=== PATIENT | female | born 1940 | race Hispanic/Latino ===

== ENCOUNTER 2017-04-02 12:51 | Emergency (ER) | payer MEDICARE ==
[~2017-04-02 12:51] MED LIST: Iopamidol 370 76% 100 ML VIAL ONE
[2017-04-02] MEDS ORDERED: traMADol HCl 50 MG TAB ONE (13:43)
[2017-04-02] MEDS ORDERED: Ketorolac Tromethamine 30 MG/ML VIAL ONE (13:43)
[2017-04-02 13:46] LABS: #Basophils 0.1 thou/uL (0.0-0.2); #Eosinphils 0.1 thou/uL (0.0-0.7); #Lymphocytes 1.9 thou/uL (1.20-3.40); #Monocytes 0.8 thou/uL (0.11-0.59); #Neutrophils 4.8 thou/uL (1.40-6.50); %Basophils 0.8 % (0.0-1.0); %Eosinophils 1.4 % (0.0-10.0); %Lymphocytes 24.9 % (21.0-51.0); %Neutrophils 62.9 % (42.0-75.0); Hemoglobin 11.7 g/dL (12.0-16.0); Mean Corpuscular HGB CONC 33.4 g/dL (32.0-36.0); Mean Corpuscular Hemoglobin 30.7 pg (27.0-31.0); Mean Corpuscular Volume 91.9 fl (81.0-99.0); Platelet Count 255 thou/uL (130-400); RBC Distribution Width 12.1 % (11.5-14.5); Red Blood Cell (RBC) Count 3.82 mill/uL (4.20-5.40); White Blood Cell (WBC) Count 7.6 thou/uL (4.8-10.8)
[2017-04-02 14:09] LABS: Anion Gap 15 mmol/L (10-20); BUN (Urea Nitrogen) 19 mg/dL (9.8-20.1); Calc. Creatinine Clearance 0 mL/min (70-130); Calcium 9.1 mg/dL (7.8-10.44); Carbon Dioxide 26 mmol/L (23-31); Chloride 104 mmol/L (98-107); Estimated GFR-MDRD 67; Glucose 84 mg/dL (83-110); Potassium 3.9 mmol/L (3.5-5.1); Sodium 141 mmol/L (136-145)
--- NOTE | 2017-04-02 16:02 | CT ---
CT PELVIS WITH AND WITHOUT IV CONTRAST: Date: 04/02/17 HISTORY: Right groin pain and hip pain. History of non-Hodgkin's lymphoma. COMPARISON: None available. FINDINGS: There is a small, fat-containing umbilical hernia. Vascular calcifications are present in the most distal visualized infrarenal abdominal aorta and invo lving the iliac arteries. Uterus is not visualized, probably related to prior hysterectomy. Urinary bladder is incompletely dis tended, but has a normal CT appearance. No dilated loops of small bowel are seen. Within the central mesentery, there is mild haziness with mild prominence of lymph nodes within the c entral mesentery. Lymph nodes are not particularly enlarged, but given patient's history, lymphoma ca nnot be entirely excluded. The largest lymph nodes measures 1.3 cm in short axis dimension. No free fluid or fluid collection is seen in the pelvis. There is sclerosis involving the sacrum bilaterally with suggestion of minimal cortical step-off sarah g the anterolateral aspect of the sacral ala bilaterally. Findings are most likely attributable to he aling bilateral sacral insufficiency fractures. Fractures are seen involving the inferior pubic rami bilaterally. No suspicious lytic or osseous lesions are identified. There are degenerative changes s een in the spine with wedge-shaped fractures involving the L3 and L4 vertebral bodies. Prominent dege nerative changes are seen at these levels as well. There are multiple surgical clips seen in the left aspect of the pelvis. No free fluid or fluid colle ction is seen in the pelvis. IMPRESSION: 1. Healing bilateral sacral insufficiency fractures. 2. Prominent wedge-shaped compression fractures of the L3 and L4 vertebral bodies. The degree of hei ght loss is greater than 75% involving the anterior aspects of these fractures. 3. Fractures involving the inferior pubic rami bilaterally. The exact age of these fractures is diff icult to determine, but may be more remote in origin, especially on the left, as there is associated mild deformity of the left pubic bone. 4. No fracture or dislocation is seen involving either hip. 5. Small, fat-containing umbilical hernia. 6. Hysterectomy. 7. Postsurgical changes left hemipelvis. 8. Haziness in the central mesentery with associated mildly prominent lymph nodes. While this is ove rall nonspecific and can be seen with mesenteric panniculitis, patient does report history of non-Hod gkin's lymphoma, and findings could potentially be attributable to lymphoma. POS: [facility]
== END 2017-04-02 15:25 | disposition home or self-care (01) ==
LOC: MADERS 12:51
DX: S76.011A Strain of muscle, fascia and tendon of right hip, initial encounter (principal); X58.XXXA Exposure to other specified factors, initial encounter
CPT/HCPCS: 72194; 80048; 85025; 96374; J1885

== ENCOUNTER 2017-05-26 21:29 | Emergency (ER) | payer MEDICARE ==
[2017-05-26] MEDS ORDERED: Phenergan/Codeine 10-6.25mg/5ml UDCUP ONE ×2 (22:00→22:03)
[2017-05-26] MEDS ORDERED: predniSONE 20 MG TAB ONE (22:00)
--- NOTE | 2017-05-26 22:16 | RAD ---
TWO VIEW CHEST: History: Cough. FINDINGS: Lungs are clear. No infiltrates seen. Heart and mediastinum are unremarkable. IMPRESSION: No evidence of acute process. POS: [facility]
[2017-05-26] MEDS ORDERED: Azithromycin 250 MG TAB ONE (22:41)
== END 2017-05-26 22:50 | disposition home or self-care (01) ==
LOC: MADERS 21:29
DX: J20.9 Acute bronchitis, unspecified (principal); E03.9 Hypothyroidism, unspecified; Z79.899 Other long term (current) drug therapy
CPT/HCPCS: 71046; J7506; J7620

== ENCOUNTER 2018-07-24 09:01 | Emergency (ER) | payer MEDICARE ==
[2018-07-24] MEDS ORDERED: Iopamidol 370 76% 100 ML VIAL ONE (09:04)
[2018-07-24 10:02] LABS: #Basophils 0.1 thou/uL (0.0-0.2); #Lymphocytes 2.5 thou/uL (1.20-3.40); #Monocytes 0.7 thou/uL (0.11-0.59); #Neutrophils 6.5 thou/uL (1.40-6.50); %Basophils 0.5 % (0.0-1.0); %Eosinophils 0.3 % (0.0-10.0); %Lymphocytes 25.3 % (21.0-51.0); %Monocytes 6.9 % (0.0-10.0); Hemoglobin 12.4 g/dL (12.0-16.0); Mean Corpuscular HGB CONC 31.6 g/dL (32.0-36.0); Mean Corpuscular Hemoglobin 26.5 pg (27.0-31.0); Mean Platelet Volume 7.1 fL (7.4-10.4); Platelet Count 294 thou/uL (130-400); RBC Distribution Width 14.1 % (11.5-14.5); Red Blood Cell (RBC) Count 4.68 mill/uL (4.20-5.40); White Blood Cell (WBC) Count 9.8 thou/uL (4.8-10.8)
[2018-07-24 10:21] LABS: ALT (SGPT) 13 U/L (8-55); AST (SGOT) 21 U/L (5-34); Albumin 4.3 g/dL (3.4-4.8); Alkaline Phosphatase 91 U/L (40-150); Anion Gap 14 mmol/L (10-20); BUN (Urea Nitrogen) 16 mg/dL (9.8-20.1); Bilirubin, Total 0.3 mg/dL (0.2-1.2); Calc. Creatinine Clearance 0 mL/min (70-130); Calcium 9.3 mg/dL (7.8-10.44); Carbon Dioxide 24 mmol/L (23-31); Chloride 102 mmol/L (98-107); Estimated GFR-MDRD 51; Globulin 4.7 g/dL (2.4-3.5); Glucose 120 mg/dL (83-110); Lipase 9 U/L (8-78); Potassium 4.1 mmol/L (3.5-5.1); Sodium 136 mmol/L (136-145)
--- NOTE | 2018-07-24 10:21 | RAD ---
SINGLE VIEW CHEST: Date: 07/24/18 COMPARISON: None. HISTORY: Chest pain after injury. FINDINGS: Single view of the chest shows a normal sized cardiomediastinal silhouette. There is no evidence of c onsolidation, mass, or pleural effusion. The bones are unremarkable. IMPRESSION: No evidence of acute cardiopulmonary disease. POS: [facility]
--- NOTE | 2018-07-24 11:40 | CT ---
CT OF THE ABDOMEN AND PELVIS WITH IV CONTRAST: Date: 07/24/18 INDICATION: Periumbilical abdominal pain. COMPARISON: CT of the pelvis with and without contrast dated 04/02/17 and chest radiograph dated 05/26/17. FINDINGS: The lung bases are clear. There are tiny hypodensities within the right hepatic lobe, one measuring 8.0 mm on image 13 of serie s 2, segment 5, and an additional measuring 4.0 mm on image 16 of series 2. There is a small hiatal hernia. The pancreas and adrenal gland appear within normal limits. Spleen is normal appearing. Kidneys are m ildly atrophic. There is extensive adenopathy within the upper retroperitoneal region. One of the largest was seen wi thin the paraaortic region measuring 1.3 cm. There is a left posterior mediastinal lymph node adjacen t to the descending thoracic aorta on image 14 of series, measuring 1.2 cm. There is an enlarged chandler portal lymph node measuring 1.1 cm. There are enlarged lymph nodes within the transverse mesocolon, l argest measuring 1.6 cm. There is mass-like wall thickening involving a loop of transverse colon, best seen on image 26 of ser ies 2, with evidence of some suspected edema or soft tissue extension into the anterior serosal layer on image 30 of series 2. This is causing mild to moderate partial obstructive physiology of the hepa tic flexure in the ascending colon. There is some mild fluid distention in loops of small bowel. Ther e is some mild fluid seen within a fat-containing periumbilical hernia, which was present on the comp arison exam. The bladder is decompressed. Rectum and perirectal soft tissues are unremarkable appeari ng. No lymphadenopathy or free fluid is evident within the pelvis. There are numerous compression abn ormalities involving the thoracolumbar spine, specifically, T9, T12, L1, L2, L3, L4, and L5. There is diffuse osteopenia. IMPRESSION: 1. Findings suspicious for an applecore malignancy of the transverse colon with associated extralumi nal and extramural spread of tumor into the anterior serosal layer with malignant lymphadenopathy of the mesocolon, retroperitoneum, and periportal regions. There are small hypodensities within the live r that cannot be further characterized; however, metastatic disease to the liver is not excluded. The re is an enlarged lymph node within the posterior mediastinum adjacent to the aorta which is also andrea picious for malignant lymph node spread. GI consultation and consideration for colonoscopy is recomme nded. An alternative explanation for the findings include an area of short segment colitis that may b e ischemic or infectious in etiology. Inflammatory etiology is felt to be less likely. 2. Chronic compression abnormalities of the thoracolumbar spine with diffuse osteopenia. POS: [facility]
[2018-07-24] MEDS ORDERED: Ondansetron PF 4 MG/2 ML Vial ONE (12:07)
[2018-07-24] MEDS ORDERED: Morphine 4 MG/ML VIAL ONE (12:07)
== END 2018-07-24 12:24 | disposition short-term general hospital (02) ==
LOC: MADERS 09:01
DX: K56.600 Partial intestinal obstruction, unspecified as to cause (principal); K63.89 Other specified diseases of intestine; B34.9 Viral infection, unspecified; E03.9 Hypothyroidism, unspecified; Z79.899 Other long term (current) drug therapy
CPT/HCPCS: 36415; 71045; 74177; 80053; 83605; 83690; 83880; 84484; 85025; 87804; 93005; 96374; 96375; J2270; J2405; J7620; Q9967

== ENCOUNTER 2019-04-10 15:29 | Outpatient (CLI) | payer MEDICARE ==
--- NOTE | 2019-04-10 15:54 | RAD ---
EXAM: 2 views of the right hip HISTORY: Right hip pain COMPARISON: None FINDINGS: 2 views of the right hip shows no evidence of acute fracture or dislocation. No degenerativ e changes are seen. No soft tissue swelling is present. IMPRESSION: No evidence of acute osseous abnormality.
--- NOTE | 2019-04-10 15:54 | RAD ---
PELVIS 1 VIEW: HISTORY: Acute exacerbation of chronic low back pain. FINDINGS: Surgical clips overlie the left pelvis. Arthrosis and degenerative changes with some hip joint space loss as well as arthrosis changes of the SI joints bilaterally. Minimal bony demineralization. No acute fracture or dislocation. IMPRESSION: Bone demineralization with arthrosis and degenerative change. POS: [facility]
== END 2019-04-10 15:30 | disposition home or self-care (01) ==
LOC: MADRAD 15:29
PROVIDERS: ATTEND Family Medicine
DX: M54.5 Low back pain (principal); M47.898 Other spondylosis, sacral and sacrococcygeal region; M81.0 Age-related osteoporosis without current pathological fracture
CPT/HCPCS: 72170

== ENCOUNTER 2019-04-16 03:12 | Emergency (ER) | payer MEDICARE, OTHER ==
[2019-04-16] MEDS ORDERED: Benzonatate 100 MG CAP ONE (03:50)
[2019-04-16 04:08] LABS: Hemoglobin 9.1 g/dL (12.0-16.0); Mean Corpuscular HGB CONC 30.6 g/dL (32.0-36.0); Mean Platelet Volume 7.9 fL (7.4-10.4); Platelet Count 103 thou/uL (130-400); RBC Distribution Width 15.4 % (11.5-14.5); Red Blood Cell (RBC) Count 2.76 mill/uL (4.20-5.40); White Blood Cell (WBC) Count 4.3 thou/uL (4.8-10.8)
[2019-04-16 04:09] LABS: #Basophils 0.1 thou/uL (0.0-0.2); #Monocytes 0.1 thou/uL (0.11-0.59); %Basophils 1.5 % (0.0-1.0); %Eosinophils 0.5 % (0.0-10.0); %Lymphocytes 24.3 % (21.0-51.0); %Monocytes 3.4 % (0.0-10.0); %Neutrophils 70.3 % (42.0-75.0); MDiff Complete? YES
[2019-04-16 04:14] LABS: ALT (SGPT) 21 U/L (8-55); AST (SGOT) 35 U/L (5-34); Albumin 3.6 g/dL (3.4-4.8); Alkaline Phosphatase 93 U/L (40-110); Anion Gap 13 mmol/L (10-20); BUN (Urea Nitrogen) 18 mg/dL (9.8-20.1); Bilirubin, Total 0.5 mg/dL (0.2-1.2); Calc. Creatinine Clearance 0 mL/min (70-130); Calcium 8.1 mg/dL (7.8-10.44); Carbon Dioxide 26 mmol/L (23-31); Chloride 105 mmol/L (98-107); Estimated GFR-MDRD 69; Globulin 3.7 g/dL (2.4-3.5); Glucose 94 mg/dL (83-110); Potassium 3.1 mmol/L (3.5-5.1); Protein, Total 7.3 g/dL (6.0-8.3); Sodium 141 mmol/L (136-145)
[2019-04-16] MEDS ORDERED: methylPREDNISolone Sod Succ/PF 125 MG/2 ML VIAL ONE (04:33)
--- NOTE | 2019-04-16 08:11 | RAD ---
ONE VIEW CHEST: COMPARISON: 07/24/2018. HISTORY: Cough, shortness of breath. FINDINGS: Atherosclerosis of the aorta. Right-sided MediPort catheter terminates in the superior vena cava. N ormal cardiac silhouette. Diffuse interstitial opacities of the lung parenchyma, unchanged. Chronic interstitial process is suspected. There do appear to be superimposed reticulonodular opacities sug gesting infiltrate. Interval blunting of the left costophrenic angle suggesting pleural effusion. A djacent left lower lobe parenchymal changes cannot be excluded. IMPRESSION: 1. Possible edema or infiltrate superimposed upon chronic changes. 2. Small left-sided pleural effusion. POS: [facility]
== END 2019-04-16 04:58 | disposition home or self-care (01) ==
LOC: MADERS 03:12
DX: I50.9 Heart failure, unspecified (principal); J06.9 Acute upper respiratory infection, unspecified; E03.9 Hypothyroidism, unspecified
CPT/HCPCS: 71045; 80053; 83880; 84484; 85025; 93005; 96374; J2930; J7620

== ENCOUNTER 2019-05-05 15:08 | Outpatient (CLI) | payer MEDICARE, OTHER ==
--- NOTE | 2019-05-05 15:33 | RAD ---
EXAM: Chest 2 views: HISTORY: Bilateral rib pain. History of pleural effusion COMPARISON: 05/26/2017 FINDINGS: There is a normal-sized cardiomediastinal silhouette. A right subclavian Mediport is seen with its t ip in the superior vena cava. Increased interstitial markings are present. There are trace bilateral pleural effusions. The bones are unremarkable. IMPRESSION: Very small bilateral pleural effusions.
--- NOTE | 2019-05-05 15:40 | RAD ---
EXAM: Right rib series HISTORY: Rib pain COMPARISON: None FINDINGS: Multiple views of the right ribs shows no evidence of displaced rib fracture. No underlying pleural t hickening or pneumothorax are seen. A Mediport is seen with its tip in the superior vena cava. IMPRESSION: 1. No evidence of displaced rib fracture.
[2019-05-05 15:47] LABS: ALT (SGPT) 9 U/L (8-55); AST (SGOT) 19 U/L (5-34); Albumin 3.5 g/dL (3.4-4.8); Alkaline Phosphatase 88 U/L (40-110); Anion Gap 14 mmol/L (10-20); BUN (Urea Nitrogen) 17 mg/dL (9.8-20.1); Bilirubin, Total 0.3 mg/dL (0.2-1.2); Calc. Creatinine Clearance 0 mL/min (70-130); Calcium 8.6 mg/dL (7.8-10.44); Carbon Dioxide 31 mmol/L (23-31); Chloride 102 mmol/L (98-107); Estimated GFR-MDRD 56; Globulin 3.5 g/dL (2.4-3.5); Glucose 96 mg/dL (83-110); Potassium 3.6 mmol/L (3.5-5.1); Sodium 143 mmol/L (136-145)
--- NOTE | 2019-05-05 15:49 | RAD ---
EXAM: Left rib series HISTORY: Rib pain COMPARISON: None FINDINGS: Multiple views of the left ribs shows no evidence of displaced rib fracture. No underlying pleural th ickening or pneumothorax are seen. IMPRESSION: 1. No evidence of displaced rib fracture.
== END 2019-05-05 15:09 | disposition home or self-care (01) ==
LOC: MADRAD 15:08
PROVIDERS: ATTEND Family Medicine
DX: R79.9 Abnormal finding of blood chemistry, unspecified (principal); R07.81 Pleurodynia; J90 Pleural effusion, not elsewhere classified; Z87.09 Personal history of other diseases of the respiratory system
CPT/HCPCS: 36415; 71046; 80053; 83880

== ENCOUNTER 2019-12-25 07:15 | Emergency (ER) | payer MEDICARE, OTHER ==
[2019-12-25] MEDS ORDERED: Sodium Chloride 0.9% 1,000 ML ONE (08:12)
[2019-12-25] MEDS ORDERED: Ondansetron PF 4 MG/2 ML Vial ONE ×2 (08:12→11:57)
[2019-12-25 08:36] LABS: #Basophils 0.1 thou/uL (0.0-0.2); #Lymphocytes 1.2 thou/uL (1.20-3.40); #Neutrophils 8.2 thou/uL (1.40-6.50); %Basophils 0.9 % (0.0-1.0); %Eosinophils 0.4 % (0.0-10.0); %Lymphocytes 11.5 % (21.0-51.0); %Monocytes 9.3 % (0.0-10.0); %Neutrophils 77.9 % (42.0-75.0); Hemoglobin 11.7 g/dL (12.0-16.0); Mean Corpuscular HGB CONC 31.6 g/dL (32.0-36.0); Mean Corpuscular Hemoglobin 30.9 pg (27.0-31.0); Mean Corpuscular Volume 97.8 fL (78.0-98.0); Mean Platelet Volume 7.5 fL (7.4-10.4); Platelet Count 251 thou/uL (130-400); RBC Distribution Width 14.4 % (11.5-14.5); White Blood Cell (WBC) Count 10.5 thou/uL (4.8-10.8)
[2019-12-25 08:47] LABS: ALT (SGPT) 7 U/L (8-55); AST (SGOT) 29 U/L (5-34); Albumin 3.7 g/dL (3.4-4.8); Alkaline Phosphatase 73 U/L (40-110); Anion Gap 15 mmol/L (10-20); BUN (Urea Nitrogen) 12 mg/dL (9.8-20.1); Bilirubin, Total 0.5 mg/dL (0.2-1.2); Calc. Creatinine Clearance 0 mL/min (70-130); Calcium 8.6 mg/dL (7.8-10.44); Carbon Dioxide 23 mmol/L (23-31); Chloride 102 mmol/L (98-107); Estimated GFR-MDRD 60; Globulin 4.5 g/dL (2.4-3.5); Glucose 88 mg/dL (83-110); Magnesium 1.7 mg/dL (1.6-2.6); Potassium 3.7 mmol/L (3.5-5.1); Protein, Total 8.2 g/dL (6.0-8.3); Sodium 136 mmol/L (136-145)
--- NOTE | 2019-12-25 10:26 | CT ---
CT abdomen and pelvis with IV contrast HISTORY: Abdomen pain. Nausea vomiting. Colon cancer. Cervical cancer. COMPARISON: Multiple exams back to 12/24/2018. FINDINGS: Reticulonodular interstitial thickening at each lung base and the parenchymal scarring at t he left lateral costophrenic angle are better detailed on CT arteriogram chest performed on the same date. Calcified lower paraesophageal lymph node noted. Tiny left renal cyst is stable. Solid organs of the abdomen are intact. Small amount of free fluid is present throughout the abdomen and pelvis. Postoperative changes of the bowel and left lower quadrant are apparent. Centered within the central pelvis just above the level of the urinary bladder, a very heterogeneous, somewhat ill-defined lobular soft tissue mass now measures up to 12.8 cm length by 10.6 cm width by 10.0 cm depth, significantly larger than the PET scan from 11/12/2019. There is displacement of the adjacent urinary and bowel structures. No evidence of bowel obstruction. No free air. Calcification throughout the arterial structures. Old healed fractures of the pelvic rami. Prominent compression deformities of the thoracolumbar spine are stable. IMPRESSION : Interval enlargement of the heterogeneous mass within the pelvis. There is compression of adjacent st ructures but no evidence of bowel or urinary tract obstruction. Abdominal fluid has increased significantly since the PET scan from 11/12/2019. Lung abnormalities are better detailed on dedicated CT chest exam performed at the same time. Atherosclerosis. Chronic-type findings are stable.
--- NOTE | 2019-12-25 10:31 | CT ---
CTA Angio Chest W WO Con History: Dyspnea Comparison: PET/CT November 2019 Findings: CT angiogram chest performed after the intravenous ministration of contrast. 3-D rendering provided. No proximal segmental pulmonary arterial filling defect. Aortic contour is tortuous. No subcutaneous pericardial fluid. Extensive perilymphatic nodularity with peribronchial vascular thickening. Confluent consolidation wi thin the lingula slightly progressed. Numerous scattered nodules have slightly increased in size from comparison exam. There are compression fractures of T5, superior endplate compression fracture with minimal anterior h eight loss. Complete burst fracture of T8 with 2 mm retrolisthesis and 50% height loss. Superior endplate Schmorl's node at T9. Complete burst fracture of T10 well as a coronal oriented split wit h retropulsion 5 mm. There is also complete first fracture of T12 also with a coronal oriented mid split with 50% height loss. Fractures appear relatively similar to 2019. Healing right anterior sixth rib fracture. Multiple old rib fractures. Impression: 1. No pulmonary embolism. 2. Abnormal reticulonodular studding throughout the lung parenchyma, greatest in the lung bases with slight interval size increase of peripheral pulmonary nodules highly suggestive of lymphangitic spread of tumor. Increased confluent metastatic disease within the lingula. 3. Similar appearance of the extensive thoracolumbar fractures as described from 2019.
[2019-12-25] MEDS ORDERED: Iopamidol 370 76% 125 ML VIAL FS ONE (10:38)
== END 2019-12-25 12:10 | disposition home or self-care (01) ==
LOC: MADERS 07:15
DX: R11.2 Nausea with vomiting, unspecified (principal); R19.03 Right lower quadrant abdominal swelling, mass and lump; R05 Cough; E03.9 Hypothyroidism, unspecified
CPT/HCPCS: 71275; 74177; 80053; 83605; 83735; 85025; 87040; 87086; 96361; 96374; 96376; J2405; J7050; Q9967

== ENCOUNTER 2020-01-15 16:28 | Outpatient (CLI) | payer MEDICARE ==
--- NOTE | 2020-01-15 16:49 | RAD ---
EXAM: CHEST TWO VIEWS 01/15/2020 4:46 PM HISTORY: Persistent cough for 3 days COMPARISON: May 05, 2019 FINDINGS: Lungs: There are bilateral interstitial and airspace opacities throughout both lungs. There is more marked consolidation in the retrocardiac left lower lobe. Heart: Normal in size and contour. Pulmonary Vessels: Normal. Costophrenic Angles: Clear. Pneumothorax: None. Osseous Structures: Intact. Additional Findings: There are mild vascular calcifications seen involving the visualized vasculatu re. There is stable right chest wall port IMPRESSION: Diffuse interstitial and airspace opacities with more prominent consolidation in the left lower lobe is suspicious for bilateral pneumonia. Recommend radiographic follow-up to resolution.
== END 2020-01-15 16:29 | disposition home or self-care (01) ==
LOC: MADRAD 16:28
PROVIDERS: ATTEND Family Medicine
DX: R05 Cough (principal); R91.8 Other nonspecific abnormal finding of lung field
CPT/HCPCS: 71046

== ENCOUNTER 2020-01-20 15:41 | Inpatient (IN) | payer MEDICARE ==
[2020-01-20] MEDS ORDERED: Azithromycin 500 MG VIAL ONE (16:38)
[2020-01-20] MEDS ORDERED: Sodium Chloride 0.9% 100 ML ONE (16:38)
[2020-01-20] MEDS ORDERED: Sodium Chloride 0.9% 500 ML ONE (16:39)
[2020-01-20] MEDS ORDERED: Sodium Chloride 0.9% 1,000 ML ONE (16:39)
[2020-01-20] MEDS ORDERED: cefTRIAXone\\ROCEPHIN 2 GM VIAL ONE (16:39)
[2020-01-20] MEDS ORDERED: Sodium Chloride 0.9% 250 ML 250 ML ONE (16:39)
[2020-01-20] MEDS ORDERED: methylPREDNISolone Sod Succ/PF 125 MG/2 ML VIAL ONE (16:39)
[2020-01-20 16:50] LABS: #Lymphocytes 1.3 thou/uL (1.20-3.40); #Monocytes 0.5 thou/uL (0.11-0.59); #Neutrophils 7.9 thou/uL (1.40-6.50); %Basophils 0.2 % (0.0-1.0); %Eosinophils 0.1 % (0.0-10.0); %Lymphocytes 13.7 % (21.0-51.0); %Monocytes 4.8 % (0.0-10.0); %Neutrophils 81.1 % (42.0-75.0); Hemoglobin 10.7 g/dL (12.0-16.0); Mean Corpuscular HGB CONC 31.8 g/dL (32.0-36.0); Mean Corpuscular Hemoglobin 30.1 pg (27.0-31.0); Mean Corpuscular Volume 94.5 fL (78.0-98.0); Platelet Count 302 thou/uL (130-400); RBC Distribution Width 13.8 % (11.5-14.5); Red Blood Cell (RBC) Count 3.56 mill/uL (4.20-5.40); White Blood Cell (WBC) Count 9.8 thou/uL (4.8-10.8)
--- NOTE | 2020-01-20 16:53 | RAD ---
XR Chest 1 View Portable HISTORY: Dyspnea COMPARISON: 01/15/2020 FINDINGS: Right-sided Port-A-Cath remains in place. The heart size is normal. The aorta is tortuous. No pneumothoraces or pleural effusions are seen. Diffuse interstitial and airspace opacities are again noted with mild consolidation in the left lower lobe. Findings are suspicious for pneumonia. IMPRESSION: Stable exam.
[2020-01-20 17:07] LABS: ALT (SGPT) 8 U/L (8-55); AST (SGOT) 20 U/L (5-34); Albumin 3.2 g/dL (3.4-4.8); Alkaline Phosphatase 52 U/L (40-110); Anion Gap 16 mmol/L (10-20); BUN (Urea Nitrogen) 34 mg/dL (9.8-20.1); Bilirubin, Total 0.3 mg/dL (0.2-1.2); CK (CPK) 100 U/L (29-168); Calc. Creatinine Clearance 0 mL/min (70-130); Calcium 7.8 mg/dL (7.8-10.44); Carbon Dioxide 26 mmol/L (23-31); Chloride 97 mmol/L (98-107); Estimated GFR-MDRD 54; Glucose 113 mg/dL (83-110); Potassium 3.9 mmol/L (3.5-5.1); Protein, Total 7.2 g/dL (6.0-8.3)
[2020-01-20 17:14] LABS: Sodium 135 mmol/L (136-145)
[2020-01-20 19:34] LABS: Lactic Acid 3.1 mmol/L (0.5-2.2)
[2020-01-20] MEDS ORDERED: [UNRECOGNIZED DRUG - OTHER] PO PRN (19:36)
[2020-01-20] MEDS ORDERED: Acetaminophen/Codeine 30-300mg Tablet PO PRN (19:36)
[2020-01-20] MEDS ORDERED: PSEUDOEPHEDRINE PO PRN (19:36)
[2020-01-20] MEDS ORDERED: FEXOFENADINE PO PRN (19:36)
[2020-01-20 20:14] VITALS: BMI 17.7
[2020-01-20] MEDS ORDERED: Ondansetron ODT 4 MG TAB PO PRN (22:16)
[2020-01-20] MEDS ORDERED: Acetaminophen 325 MG TAB PO PRN (22:16)
[2020-01-20] MEDS ORDERED: Diphenoxylate HCl/Atropine Tablet PO PRN (22:17)
[2020-01-20] MEDS ORDERED: guaiFENesin/Codeine Phosphate 100 mg/10 mg 5 ml UD Cup PO PRN (22:18)
[2020-01-20] MEDS ORDERED: guaiFENesin/Codeine Phosphate 100 mg/10 mg 5 ml UD Cup ONE (22:36)
[2020-01-20] MEDS: Sodium Chloride 0.9% 1,000 ML IV SCH (22:51)
[2020-01-21 01:06] LABS: Bilirubin Negative (Negative); Blood, Urine Negative (Negative); Clarity Clear (Clear); Glucose, Urine (Dipstick) Negative (Negative); Ketone, Urine Negative (Negative); Leukocyte Negative (Negative); Nitrite Negative (Negative); Protein, Urine (Dipstick) Negative (Neg-Trace); Urobilinogen 0.2 mg/dL (Less than 2)
[2020-01-21 01:22] LABS: Bacteria/HPF None Seen HPF (None Seen); Mucous/LPF None Seen LPF (<2+); RBC/HPF None Seen HPF (0-3); Squamous Epithelial 0-3 HPF (0-3); WBC/HPF None Seen HPF (0-3)
[2020-01-21] MEDS: cefTRIAXone\\ROCEPHIN 2 GM in Sodium Chloride 0.9% 100 ML IVPB SCH ×2 (05:30→17:06)
[2020-01-21] MEDS: Levothyroxine Sodium 112 MCG TAB PO SCH (05:30)
[2020-01-21] MEDS ORDERED: Levothyroxine Sodium 100 MCG TAB PO SCH (06:00)
[2020-01-21 07:43] LABS: Lactic Acid 1.1 mmol/L (0.5-2.2)
[2020-01-21 07:46] LABS: Anion Gap 14 mmol/L (10-20); BUN (Urea Nitrogen) 24 mg/dL (9.8-20.1); Calc. Creatinine Clearance 40 mL/min (70-130); Calcium 7.1 mg/dL (7.8-10.44); Carbon Dioxide 24 mmol/L (23-31); Chloride 102 mmol/L (98-107); Estimated GFR-MDRD 75; Glucose 122 mg/dL (83-110); Potassium 4.4 mmol/L (3.5-5.1); Sodium 136 mmol/L (136-145)
[2020-01-21] MEDS: Benzonatate 100 MG CAP PO SCH ×3 (08:46→17:06)
[2020-01-21] MEDS: Sodium Chloride 0.9% 1,000 ML IV SCH (08:47)
[2020-01-21] MEDS: Loratadine 10 MG TAB PO SCH (08:47)
--- NOTE | 2020-01-21 08:48 | HP ---
PCP: Dora Kearney MD. ONCOLOGIST: Dr. Montana. REASON FOR ADMISSION: Shortness of breath. HISTORY OF THE PRESENT ILLNESS AND HOSPITAL COURSE: Ms. Pepper is a very pleasant 79-year-old female with history of multiple cancers including non-Hodgkin lymphoma and uterine cancer. 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 The patient is currently on chemotherapy q. weekly under the care of Dr. Montana in [facility]. The patient reports that she has been having persistent intermittent coughing for the past 4 to 5 weeks. She has had a recent CTA of the chest on 12/25/2019 and was found to have an endopelvic mass 12.8 x 10.6 x 10, abnormal reticular nodular studding throughout the lung parenchyma, greatest in the lung bases with slight interval size increase and peripheral pulmonary nodules highly suggestive of lymphangitic, increased confluent metastatic disease with the lingula. She was started on new chemotherapy treatment by Dr. Montana on 12/28/2019 with Erbitux/irinotecan. Due to persistent cough and associated now with sputum production, posttussive emesis, patient went to PCP on 01/15/2020. The patient remains febrile free. Denies bloody sputum, wheezing, any chest pain or pain with breathing. At that time, patient has had a chest x-ray that was consistent with bilateral interstitial and airspace opacities throughout both lungs with more marked consolidation in the retrocardiac left lower lobe, suspicious of bilateral pneumonia. The patient was treated for outpatient management with oral Levaquin. Above condition was coordinated with the patient's oncologist, Dr. Montana. She then followed up with Dr. Montana for another course of chemotherapy on 01/18/2020. The patient was recommended to continue current antibiotic and cough suppressant. The patient reports marked improvement with overall coughing spells. She remains febrile free. However, the patient reports that she developed shortness of breath and has gotten worse today, prompting consult to [facility] ER. On further evaluation at the ER today, the patient's chest x-ray showed a stable exam with persistent mild consolidation in the left lower lobe consistent with possible pneumonia. The patient also reports that she has not been eating much over the past week. She has been generally weak and unable to get up at home. Her initial vital signs in the ER showed blood pressure 113/43, pulse 64, respiration 22, temperature 97.6, O2 saturations 98% initially on room air. O2 saturations subsequently went down to 90% in room air, thus requiring continuous O2 per nasal cannula. Labs in the ER showed no significant leukocytosis or left shift. Her hemoglobin was 10.7 and hematocrit 33.7. Troponin was 0.015. CK 100, BUN 34, creatinine 0.99, lactic acid 2.2, and albumin 3.2. Urine was negative. Flu type A and B were negative. COVID was pending. The patient was started on IV hydration in the ER for clinical dehydration. She was also treated with DuoNeb, Solu-Medrol IV. She was then started on Zithromax IV and Rocephin IV. She felt largely improved on recheck. Upon admission, the patient was not in respiratory distress or evident of severe hypoxia. She does have evidence of persistent pneumonia despite outpatient treatment. She is deemed to benefit for inpatient management of pneumonia given the guarded prognosis secondary to advanced cancer. When seen on the floor, the patient is comfortably resting in bed. States that she felt a lot better after the initial treatment in the ER. She states that she is not coughing much and is breathing much better. She denies chest pain, pain with breathing, fever, or active shortness of breath. PAST MEDICAL HISTORY: 1. Advanced cancer as above. 2. Hypothyroidism. 3. Degenerative joint disease. 4. Celiac disease. 5. History of fracture of the tibia, ankle, and right collarbone. PAST SURGICAL HISTORY: Tonsillectomy in 1948, partial hysterectomy secondary to cancer of the uterus stage I in 1974, right hemicolectomy in 2019, thyroidectomy. FAMILY HISTORY: Parents are . Children are alive and known healthy. SOCIAL HISTORY: The patient is . She denies smoking, alcohol, or illicit drug use. ALLERGIES: PENICILLIN, HIVES; TRAMADOL, RASH; CLINDAMYCIN, ITCHING. HOSPITALIZATION: Fracture of the tibia, ankle and collarbone secondary to horse riding accident in 1979. Colon resection surgery on 07/24/2018. MEDICATIONS: 1. Levothyroxine 112 mcg p.o. daily. 2. Lomotil 2.5/0.025 mg as needed four times daily. 3. Ventolin HFA one puff every 4 hours as needed. 4. Hydrocodone 5/325 mg p.o. q.6 hours p.r.n. 5. Ondansetron 8 mg sublingual q.6 hours p.r.n. 6. Promethazine with Codeine 5 mL q.4 hours p.r.n. 7. Tessalon Perles 200 mg p.o. 3 times a day p.r.n. 8. Levaquin 750 p.o. daily, on her last day today. REVIEW OF SYSTEMS: GENERAL: Denies fever, chills. Reports fatigue, general weakness, loss of appetite and weight loss. HEENT: No acute visual changes or hearing changes. No cold symptoms. No loss of taste or smell. RESPIRATORY: Reports persistent cough, shortness of breath per HPI. Denies bloody sputum, pain with breathing. CARDIAC: Denies chest pain, dyspnea on exertion, palpitations, leg swelling. GI: Reports intermittent nausea, vomiting notably after chemotherapy. Reports intermittent chronic abdominal pain and diarrhea, denies constipation, rectal bleeding, melena, hematemesis, or hematochezia. GENITOURINARY: No dysuria, hematuria, frequency, urgency, or incontinence. MUSCULOSKELETAL: Reports chronic intermittent low back pain. Denies myalgia or body aches. NEUROLOGIC: No focal numbness, focal weakness, syncope, seizure like activities. SKIN: Denies skin rashes, lesions or pruritus. PSYCHIATRIC: Denies depressive symptoms, anxiety, or hallucinations. ASSESSMENT AND PLAN: 1. Community-acquired left lower lobe pneumonia. 2. Clinical dehydration secondary to poor oral intake. 3. General weakness. 4. History of multiple cancers of the uterus, colon, non-Hodgkin lymphoma. 5. History of advanced cancer with metastasis to the lungs. 6. History of Postsurgical hypothyroidism. The patient is admitted to [facility] for inpatient management of pneumonia, failed outpatient treatment. We will continue IV antibiotics with Rocephin and Zithromax as ordered. We will continue bronchodilator p.r.n. and nasal cannula to keep O2 saturations 92% and above. Continue home medications as modified per list. To. Continue IV hydration until patient is able to tolerate adequate oral intake. Dietary consult for nutritional supplements. Routine/serial lab for electrolytes, renal function monitoring. DVT prophylaxis with Lovenox, patient declined.Agreed to [facility] instead. Further recommendations depending on the hospital course. Estimated length of stay, may need 3 nights stay. If the patient remains deconditioned and generally weak., may consider further therapy in [facility] after acute care. CODE STATUS: The patient reports DNAR. Job ID: [id number] MTDD
[2020-01-21] MEDS ORDERED: Hyoscyamine Sulfate SL 0.125 mg Tablet SL PRN (14:54)
[2020-01-21 17:06] LABS: SARS-CoV-2 MS2 Positive; SARS-CoV-2 N Gene Negative; SARS-CoV-2 S Gene Negative; SARS-CoV-2 by NAA Not Detected (NotDetected); SARS-CoV-2 orf1ab Negative
[2020-01-21] MEDS: Azithromycin 500 MG in Sodium Chloride 0.9% 250 ML 250 ML IVPB SCH (17:06)
[2020-01-22] MEDS: Levothyroxine Sodium 112 MCG TAB PO SCH (05:36)
[2020-01-22] MEDS: cefTRIAXone\\ROCEPHIN 2 GM in Sodium Chloride 0.9% 100 ML IVPB SCH ×2 (05:36→16:59)
[2020-01-22] MEDS: Saccharomyces boulardii 250 MG CAP PO SCH (08:18)
[2020-01-22] MEDS: Loratadine 10 MG TAB PO SCH (08:19)
[2020-01-22] MEDS: Benzonatate 100 MG CAP PO SCH ×3 (08:19→16:59)
[2020-01-22] MEDS: Azithromycin 500 MG in Sodium Chloride 0.9% 250 ML 250 ML IVPB SCH (18:08)
[2020-01-22] MEDS ORDERED: Azithromycin 250 MG TAB PO SCH (20:00)
[2020-01-23] MEDS: Levothyroxine Sodium 112 MCG TAB PO SCH (05:41)
[2020-01-23] MEDS: Loratadine 10 MG TAB PO SCH (08:36)
[2020-01-23] MEDS: Saccharomyces boulardii 250 MG CAP PO SCH (08:36)
[2020-01-23] MEDS: Benzonatate 100 MG CAP PO SCH ×3 (08:36→16:45)
[2020-01-23] MEDS ORDERED: Diphenoxylate HCl/Atropine Tablet ONE (14:25)
[2020-01-23] MEDS ORDERED: Azithromycin 250 MG TAB PO SCH ×2 (20:00→21:00)
[2020-01-24] MEDS: Levothyroxine Sodium 112 MCG TAB PO SCH (05:52)
[2020-01-24] MEDS: Loratadine 10 MG TAB PO SCH (08:53)
[2020-01-24] MEDS: Benzonatate 100 MG CAP PO SCH ×2 (08:53→11:51)
[2020-01-24] MEDS: Saccharomyces boulardii 250 MG CAP PO SCH (08:54)
[2020-01-24 11:52] VITALS: BP 104/63; TEMP 97.8
--- NOTE | 2020-01-24 12:37 | RAD ---
CHEST 2 VIEWS: HISTORY: Persistent cough, changes in lung status. COMPARISON: 01/15/2020. FINDINGS: Fairly extensive bilateral interstitial and alveolar ground-glass opacity changes noted bilaterally w ith some bilateral nodularity. These changes are more marked in the region of the lingula and left l ower lobe. These findings are suspicious for bilateral pneumonia. No significant pleural effusion. Heart size is normal. IMPRESSION: Fairly extensive bilateral interstitial and ground-glass opacity changes somewhat more dense in the r egion of the left lower lobe and lingula. Little change from prior study. POS: [facility]
== END 2020-01-24 13:57 | disposition swing bed (61) | DRG 194 ==
LOC: MADERS 15:41 → MADMS 18:15
PROVIDERS: ADMIT Family Medicine; ATTEND Family Medicine
DX: J18.9 Pneumonia, unspecified organism (principal); C18.4 Malignant neoplasm of transverse colon; C78.7 Secondary malignant neoplasm of liver and intrahepatic bile duct; C78.00 Secondary malignant neoplasm of unspecified lung; E86.0 Dehydration; E89.0 Postprocedural hypothyroidism; R53.81 Other malaise; D64.9 Anemia, unspecified; D89.9 Disorder involving the immune mechanism, unspecified; Z20.828 Contact with and (suspected) exposure to other viral communicable diseases; R09.02 Hypoxemia; E83.51 Hypocalcemia; Z92.21 Personal history of antineoplastic chemotherapy; Z79.899 Other long term (current) drug therapy; Z79.2 Long term (current) use of antibiotics; Z88.0 Allergy status to penicillin; Z88.8 Allergy status to other drugs, medicaments and biological substances; Z90.711 Acquired absence of uterus with remaining cervical stump
CPT/HCPCS: 36415; 71045; 71046; 80048; 80053; 81001; 82550; 83605; 84484; 85025; 87040; 87635; 87804; 93005; 94760; 96365; 96367; 96375; J0456; J0696; J2930; J3490; J7030; J7050; J7620; U0003

== ENCOUNTER 2020-01-24 13:56 | Inpatient (IN) | payer MEDICARE ==
[2020-01-24 14:31] VITALS: BMI 17.7
[2020-01-24] MEDS ORDERED: Acetaminophen 325 MG TAB PO PRN (14:50)
[2020-01-24] MEDS ORDERED: Acetaminophen/Codeine 30-300mg Tablet PO PRN (14:50)
[2020-01-24] MEDS ORDERED: Loratadine 10 MG TAB PO PRN (14:52)
[2020-01-24] MEDS ORDERED: Diphenoxylate HCl/Atropine Tablet PO PRN (14:52)
[2020-01-24] MEDS: Benzonatate 100 MG CAP PO SCH (17:02)
[2020-01-24] MEDS ORDERED: Ondansetron PF 4 MG/2 ML Vial IVP PRN (19:19)
[2020-01-24] MEDS: Ondansetron ODT 4 MG TAB SL PRN (19:24)
[2020-01-24] MEDS ORDERED: Azithromycin 250 MG TAB PO SCH (21:00)
[2020-01-25] MEDS: Levothyroxine Sodium 112 MCG TAB PO SCH ×2 (06:00→06:07)
[2020-01-25] MEDS: Ondansetron ODT 4 MG TAB SL PRN (06:00)
[2020-01-25] MEDS: Saccharomyces boulardii 250 MG CAP PO SCH (07:18)
[2020-01-25] MEDS: Benzonatate 100 MG CAP PO SCH ×3 (07:19→17:28)
[2020-01-25] MEDS: Hyoscyamine Sulfate SL 0.125 mg Tablet SL PRN ×2 (13:01→20:28)
[2020-01-25] MEDS: guaiFENesin/Codeine Phosphate 100 mg/10 mg 5 ml UD Cup PO PRN ×2 (14:12→20:58)
[2020-01-26] MEDS: Levothyroxine Sodium 112 MCG TAB PO SCH (05:42)
[2020-01-26] MEDS: Saccharomyces boulardii 250 MG CAP PO SCH (08:31)
[2020-01-26] MEDS: Benzonatate 100 MG CAP PO SCH ×3 (08:31→17:22)
[2020-01-26] MEDS: Hyoscyamine Sulfate SL 0.125 mg Tablet SL PRN ×2 (09:35→17:22)
[2020-01-26] MEDS: Ondansetron ODT 4 MG TAB SL PRN ×2 (09:35→17:22)
[2020-01-26] MEDS: guaiFENesin/Codeine Phosphate 100 mg/10 mg 5 ml UD Cup PO PRN (20:22)
[2020-01-27] MEDS: Levothyroxine Sodium 112 MCG TAB PO SCH (05:49)
[2020-01-27] MEDS: Saccharomyces boulardii 250 MG CAP PO SCH (08:16)
[2020-01-27] MEDS: Benzonatate 100 MG CAP PO SCH ×3 (08:16→17:09)
[2020-01-27] MEDS: Ondansetron ODT 4 MG TAB SL PRN (09:52)
[2020-01-27] MEDS: guaiFENesin/Codeine Phosphate 100 mg/10 mg 5 ml UD Cup PO PRN (21:27)
[2020-01-28] MEDS: Levothyroxine Sodium 112 MCG TAB PO SCH (06:07)
[2020-01-28] MEDS: Benzonatate 100 MG CAP PO SCH ×2 (08:53→11:19)
[2020-01-28] MEDS: Saccharomyces boulardii 250 MG CAP PO SCH (08:53)
[2020-01-28 09:01] VITALS: BP 154/83; TEMP 98.1
--- NOTE | 2020-01-31 07:31 | DIS ---
DATE OF ADMISSION: 01/24/2020 DATE OF DISCHARGE: 01/28/2020 ONCOLOGIST: Dr. Montana. REASON FOR ADMISSION: Shortness of breath. ADMITTING DIAGNOSES: 1. Community-acquired pneumonia, left lower lobe, failed outpatient management. 2. Hypoxia, O2 requiring. 3. Clinical dehydration. 4. Advanced colon cancer with metastasis to the lungs. 5. General weakness. 6. History of multiple cancers of the uterus, colon, non-Hodgkin lymphoma. 7. History of postsurgical hypothyroidism. FINAL DIAGNOSES: 1. Physical deconditioning secondary to general weakness. 2. Community-acquired pneumonia, bilateral lobe, treated. 3. Clinical dehydration secondary to poor oral intake, improved. 4. General weakness, improved. 5. History of advanced colon cancer with metastasis to the lungs, ongoing chemotherapy. 6. History of postsurgical hypothyroidism. 7. Hypoxia, O2 requiring, resolved. DISPOSITION: Home. CONDITION ON DISCHARGE: Stable. MEDICATIONS: 1. Ventolin HFA 1 puff every 4 hours as needed. 2. Ondansetron 4 mg q.6 hours p.r.n. 3. Promethazine with codeine 5 mL q.4 hours p.r.n. 4. Tessalon Perles 200 mg t.i.d. p.r.n. 5. Lomotil 4 times daily p.r.n. 6. Levothyroxine 112 mcg p.o. q.a.m. 7. Tylenol No. 3 q.6 p.r.n. 8. Loratadine 10 mg p.o. daily. 9. Florastor 250 mg p.o. daily. DISCHARGE INSTRUCTIONS: 1. Diet as tolerated. 2. Activity: Ad terri. 3. Follow up with Dr. Kearney in 1 week. 4. Follow up with Dr. Montana on 02/01/2020 at [facility] in [place]. HISTORY OF THE PRESENT ILLNESS AND HOSPITAL COURSE: Ms. Pepper is a very pleasant 79-year-old female with significant history of multiple cancers including non-Hodgkin lymphoma in remission, history of uterine cancer, and now with active colon cancer, reported to be advanced with metastasis to lingula. Patient is currently receiving an ongoing chemotherapy with Dr. Montana at [facility]. She is currently on new medication for this. She is on Erbitux/irinotecan, that was started by Dr. Montana on 12/28/2019. Patient reports persistent cough overthe last 5 weeks with minimal sputum production, posttussive emesis. 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 Due to the persistence of symptoms, patient went initially to [facility] 2-3 weeks ago . She was treated with cough suppressant for this Her CT at that time showed slight interval size increase or peripheral pulmonary nodules highly suggestive of lymphangitic spread of tumor with increased confluent metastatic disease within the lingula. Patient then went to see PCP on 01/15/2020 secondary to persistent cough with associated with intermittent shortness of breath with coughing spells. At that time, chest x-ray was obtained. Chest x-ray showed diffuse interstitial and airspace opacities with more prominent consolidation in the left lower lobe, suspicious for bilateral pneumonia. Patient was treated with oral Levaquin as outpatient. Patient went back at [facility] on 01/20/2020 secondary to persistent shortness of breath and wheezing. Repeat chest x-ray at that time showed stable exam. The patient was noted to have mild hypoxia down to 90% O2 sats at room air. O2 saturation improved with oxygen supplement per nasal cannula. At that time, the patient was not comfortable going back home, thus she was admitted for inpatient management of pneumonia. Patient was started on empiric IV antibiotic treatments including Rocephin and Zithromax. She was also started on DuoNeb or bronchodilator. Patient was likewise generally weak and reports that she has not been eating much lately secondary to persistent coughing. Patient did well over the course. She was also hydrated with intravenous fluids. Her oxygen was maintained 92 and above at room air. She was subsequently weaned off from the oxygen supplementation. She was initially febrile free and COVID testing came back negative. On her 5th day of hospitalization when she was preparing to be discharged, the patient then developed recurrence of shortness of breath and wheezing thus she stayed. She went back to Dr Montana for her chemotherapy on 01/25/2020. Due to having an acute infection, chemotherapy was canceled per oncologist's recommendation, so she came back on 01/25/2020 to the facility Patient reports being generally weak and agreed to stay in [facility] for rehab. Patient did well during the rehab course. On 01/26/2020, she developed a low-grade temp of 100.4, that went away after an hour. This was then deemed due to the very warm room temperature and found using 2 layers of blanket. At that time, she also was complaining of increased nausea and discomfort to eat. She was treated with PPI and did well. There was no recurrence of febrile episodes then. There was no evidence of septicemia nor bacteremia. Thus, there was no further workup was recommended. On 01/28/2020, patient was requested to be discharged home so she can rest in preparation for her next chemotherapy on 01/31 as scheduled. She was walking independently and transfers on her own prior to discharge. She still needs some frequent rest breaks in between secondary to fatigue, but she continues to demonstrate safe functional mobility within her room. Patient was recommended to have further therapy at home via home health, but declined services at this time. Patient is recommended to continue all her current supportive medical management and to proceed with her next chemotherapy scheduled on 02/01/2020. Above information are all coordinated with her oncologist, Dr. Montana, on telephone conversation, by PCP to the specialist. Vital signs prior to discharge: Blood pressure 154/83; temperature 98.1; pulse 96; respiration 16-22, 16 at rest, up to 22 with exertion; O2 sats 97% on room air. Job ID: [id number] [id number]
== END 2020-01-28 13:35 | disposition home or self-care (01) | DRG 947 ==
LOC: MADMS 13:57
PROVIDERS: ADMIT Family Medicine; ATTEND Family Medicine
DX: R53.1 Weakness (principal); J18.9 Pneumonia, unspecified organism; C18.9 Malignant neoplasm of colon, unspecified; C78.02 Secondary malignant neoplasm of left lung; E89.0 Postprocedural hypothyroidism; R09.02 Hypoxemia; Z20.828 Contact with and (suspected) exposure to other viral communicable diseases; E86.0 Dehydration; Z88.0 Allergy status to penicillin; Z88.8 Allergy status to other drugs, medicaments and biological substances; Z92.21 Personal history of antineoplastic chemotherapy; Z85.72 Personal history of non-Hodgkin lymphomas; Z85.42 Personal history of malignant neoplasm of other parts of uterus
CPT/HCPCS: J7620; Q0162